=== PATIENT | male | born 1985 | race American Indian/Alaskan Native ===

== ENCOUNTER 2018-12-23 23:22 | Emergency (ER) | payer OTHER ==
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
[2018-12-24 00:07] LABS: Basophils # (Auto) 0.1 K/mm3 (0.0-0.1); Basophils % (Auto) 1.3 % (0.0-1.8); Eosinophils # (Auto) 0.3 K/mm3 (0.0-0.4); Eosinophils % (Auto) 4.1 % (0.0-4.3); Lymphocytes # (Auto) 2.5 K/mm3 (1.2-5.4); Lymphocytes % (Auto) 34.7 % (13.4-35.0); Mean Corpuscular HGB Conc 36 % (32-34); Mean Corpuscular Volume 84 fl (84-94); Monocytes # (Auto) 0.4 K/mm3 (0.0-0.8); Monocytes % (Auto) 5.5 % (0.0-7.3); Platelet Count 406 K/mm3 (140-440); Red Blood Count 4.64 M/mm3 (3.65-5.03); Red Cell Distribution Width 13.4 % (13.2-15.2)
[2018-12-24 00:38] LABS: Bilirubin,Urine NEG (Negative); Blood,Urine NEG (Negative); Color,Urine Straw (Yellow); Mucus,Urine FEW /HPF; Protein,Urine <15 mg/dL mg/dL (Negative); Urobilinogen,Urine < 2.0 mg/dL (<2.0); WBC,Urine < 1.0 /HPF (0.0-6.0)
[2018-12-24 00:52] LABS: Amphetamine Screen,Urine PRESUMPTIVE NEGATIVE; Benzodiazepines Screen,Urine PRESUMPTIVE NEGATIVE; Cannabinoid Screen,Urine PRESUMPTIVE NEGATIVE; Cocaine Screen,Urine PRESUMPTIVE NEGATIVE; Methadone Screen,Urine PRESUMPTIVE NEGATIVE; Opiate Screen,Urine PRESUMPTIVE NEGATIVE
[2018-12-24 01:11] LABS: Albumin 4.6 g/dL (3.9-5); Calcium 9.6 mg/dL (8.4-10.2)
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
[2018-12-24] MEDS ORDERED: VITAMIN B-1 100 MG, FOLVITE 1 MG, INFUVITE 10 ML, MAGNESIUM SULFATE 2 GM in NACL 0.9% 1... IV ONE (02:23)
[2018-12-24] MEDS ORDERED: FOLVITE 1 MG, INFUVITE 10 ML, MAGNESIUM SULFATE 2 GM in NACL 0.9% 1000 ML 1,000 ML IV ONE (02:45)
[2018-12-24] MEDS ORDERED: VITAMIN B-1 PO ONE (03:00)
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
[2018-12-24] MEDS: PAXIL PO SCH (11:16)
[2018-12-24] MEDS: BENADRYL PO SCH (22:15)
[2018-12-24] MEDS: MINIPRESS PO SCH (22:19)
[2018-12-25] MEDS: PAXIL PO SCH (09:46)
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
[2018-12-25] MEDS: BENADRYL PO SCH (22:05)
[2018-12-25] MEDS: MINIPRESS PO SCH (22:12)
[2018-12-26 08:04] VITALS: BP 128/80
[2018-12-26] MEDS: PAXIL PO SCH (10:00)
== END 2018-12-26 11:42 | disposition home or self-care (01) ==
LOC: EEVIPCON 23:22 → ED 23:22
DX: S00.212A Abrasion of left eyelid and periocular area, initial encounter (principal); S09.90XA Unspecified injury of head, initial encounter; F32.9 Major depressive disorder, single episode, unspecified; F43.10 Post-traumatic stress disorder, unspecified; F10.929 Alcohol use, unspecified with intoxication, unspecified; Z79.899 Other long term (current) drug therapy; Y04.8XXA Assault by other bodily force, initial encounter; Y93.89 Activity, other specified; Y92.89 Other specified places as the place of occurrence of the external cause; Y99.8 Other external cause status
CPT/HCPCS: 36415; 70450; 70486; 72125; 80053; 80307; 81001; 85025; 96365; 99285; G0480; J3475; J7030; 80320

== ENCOUNTER 2019-01-10 20:21 | Emergency (ER) | payer OTHER ==
[2019-01-10] MEDS ORDERED: GEODON IM ONE ×2 (20:48→21:00)
--- NOTE | 2019-01-10 21:06 | Emergency Department Report ---
ED Psych HPI - General Stated Complaint: MEDICAL CLEARANCE Time Seen by Provider: 01/10/19 20:45 Source: patient Mode of arrival: Ambulatory Limitations: Altered Mental Status - History of Present Illness Initial Comments: Patient is a 33-year-old male Emergency room for help with detox. Patient states he is drunk right now. Patient states his last drink was 30 minutes ago. Patient denies suicidal or homicidal ideation. Patient states he just wants help. Patient denies chest pain or shortness of breath. Patient denies hallucinations. -: Sudden History of same: Yes Quality: constant Improves With: none Worsens With: none Context: recent alcohol abuse Associated Symptoms: denies other symptoms. denies: confusion, headache, shortness of breath, nausea, vomiting, syncope, insomnia Treatments Prior to Arrival: none - Related Data Home Medications Medication Instructions Recorded Confirmed Last Taken Gabapentin [Neurontin] 3 tab PO HS 12/24/18 12/24/18 Unknown Lurasidone HCl [Latuda] 1 tab PO HS 12/24/18 12/24/18 Unknown Previous Rx's Medication Instructions Recorded Last Taken Type Prazosin [Minipress] 1 mg PO HS #30 capsule 12/26/18 Unknown Rx diphenhydrAMINE [Benadryl CAP] 25 mg PO HS #30 capsule 12/26/18 Unknown Rx Allergies Allergy/AdvReac Type Severity Reaction Status Date / Time No Known Allergies Allergy Verified 12/24/18 02:47 ED Review of Systems ROS: Stated complaint: MEDICAL CLEARANCE Other details as noted in HPI ED Past Medical Hx - Past Medical History Hx Psychiatric Treatment: Yes (PTSD) Additional medical history: Sleep disorder - Social History Substance Use Type: Alcohol - Medications Home Medications: Home Medications Medication Instructions Recorded Confirmed Last Taken Type Gabapentin [Neurontin] 3 tab PO HS 12/24/18 12/24/18 Unknown History Lurasidone HCl [Latuda] 1 tab PO HS 12/24/18 12/24/18 Unknown History Prazosin [Minipress] 1 mg PO HS #30 capsule 12/26/18 Unknown Rx diphenhydrAMINE [Benadryl CAP] 25 mg PO HS #30 capsule 12/26/18 Unknown Rx ED Physical Exam - General General appearance: alert, in no apparent distress - Head Head exam: Present: atraumatic, normocephalic - Eye Eye exam: Present: normal appearance, PERRL Pupils: Present: normal accommodation - ENT ENT exam: Present: mucous membranes moist - Neck Neck exam: Present: normal inspection - Respiratory Respiratory exam: Present: normal lung sounds bilaterally. Absent: respiratory distress, wheezes, rales, rhonchi - Cardiovascular Cardiovascular Exam: Present: regular rate, normal rhythm. Absent: systolic murmur, diastolic murmur, rubs, gallop - GI/Abdominal GI/Abdominal exam: Present: soft, normal bowel sounds. Absent: distended, tenderness, guarding - Rectal Rectal exam: Present: deferred - Extremities Exam Extremities exam: Present: normal inspection, full ROM - Back Exam Back exam: Present: normal inspection - Neurological Exam Neurological exam: Present: alert, oriented X3 - Psychiatric Psychiatric exam: Present: agitated - Expanded Psychiatric Exam Expanded Focused psych exam: Present: pressured speech, internal stimuli, psychomotor agitation, restlessness, flight of ideas, loose associations - Skin Skin exam: Present: warm, dry, intact, normal color. Absent: rash ED Course Vital Signs 01/10/19 01/10/19 01/10/19 21:05 21:10 22:00 Temperature 97.8 F 98 F Pulse Rate 90 88 80 Respiratory 16 14 15 Rate Blood Pressure 111/57 111/57 Blood Pressure 111/57 [Right] O2 Sat by Pulse 96 98 95 Oximetry - Reevaluation(s) Reevaluation #1: Evaluation done. Patient very agitated and aggressive towards staff. Patient is talking to the pacheco and the doors. Patient is aggressive to the pacheco and doors. Patient yelling obscenities in the ER. Multiple attempts have been made to calm the patient. Patient is agitated and aggressive towards staff. Patient was placed in a seclusion room with soft restraints and given Geodon.. 1013 signed for acute psychosis and aggressive behavior. 01/10/19 20:45 Patient resting in bed. Patient asleep but arousable. Patient's on the monitor and vital signs are stable. 01/10/19 22:00 Vital signs stable. Patient is still resting. Patient will be given a banana bag. 01/11/19 00:06 All labs reviewed. Patient will remain in the ER until exception to appropriate psychiatric facility. Patient will remain on a 1013. Patient is medically clear. 01/11/19 00:30 ED Medical Decision Making - Lab Data Result diagrams: 01/10/19 21:18 01/10/19 21:18 - Medical Decision Making Patient is a 33-year-old male that presents emergency room with complaints of wanting detox and help quitting drinking. Patient acutely intoxicated. Patient also having psychotic symptoms. Patient was placed on a 1013 for his acute psychosis and aggressive behavior. Patient was given Geodon upon initial evaluation and placed in 4. restraints. Patient resting well in the ER. Patient we will place in a seclusion room until patient behaviors have improved. Patient given a banana bag. Patient's labs unremarkable. Patient is medically clear. Patient remained as an ER hold on a 1013 until excepted into an appropriate psychiatric facility. - Differential Diagnosis psychosis. Acute alcohol intoxication. Delirium Critical care attestation.: If time is entered above; I have spent that time in minutes in the direct care of this critically ill patient, excluding procedure time. ED Disposition Clinical Impression: Acute psychosis, Aggressive behavior, Agitation Alcohol intoxication Qualifiers: Complication of substance-induced condition: with delirium Qualified Code(s): F10.921 - Alcohol use, unspecified with intoxication delirium Disposition: DC/TX-65 PSY HOSP/PSY UNIT Is pt being admited?: No Does the pt Need Aspirin: No Condition: Stable Additional Instructions: Patient medically cleared and will remain on 1013. Time of Disposition: 00:11
[2019-01-10 21:26] LABS: Bilirubin,Urine NEG (Negative); Blood,Urine SM (Negative); Color,Urine Straw (Yellow); Protein,Urine <15 mg/dL mg/dL (Negative); Urobilinogen,Urine < 2.0 mg/dL (<2.0); WBC,Urine < 1.0 /HPF (0.0-6.0)
[2019-01-10 21:28] LABS: Basophils % (Auto) 0.8 % (0.0-1.8); Eosinophils # (Auto) 0.1 K/mm3 (0.0-0.4); Eosinophils % (Auto) 2.3 % (0.0-4.3); Hematocrit 41.3 % (35.5-45.6); Lymphocytes # (Auto) 3.2 K/mm3 (1.2-5.4); Lymphocytes % (Auto) 53.9 % (13.4-35.0); Mean Corpuscular HGB Conc 34 % (32-34); Mean Corpuscular Volume 85 fl (84-94); Monocytes # (Auto) 0.4 K/mm3 (0.0-0.8); Monocytes % (Auto) 6.3 % (0.0-7.3); Platelet Count 313 K/mm3 (140-440); Red Blood Count 4.84 M/mm3 (3.65-5.03); Red Cell Distribution Width 13.2 % (13.2-15.2)
[2019-01-10 21:35] LABS: Amphetamine Screen,Urine PRESUMPTIVE NEGATIVE; Benzodiazepines Screen,Urine PRESUMPTIVE NEGATIVE; Cannabinoid Screen,Urine PRESUMPTIVE NEGATIVE; Cocaine Screen,Urine PRESUMPTIVE NEGATIVE; Methadone Screen,Urine PRESUMPTIVE NEGATIVE; Opiate Screen,Urine PRESUMPTIVE NEGATIVE
[2019-01-10 21:46] LABS: Alanine Aminotransferase 20 units/L (7-56); Albumin 4.7 g/dL (3.9-5); BUN/Creatinine Ratio 11; Blood Urea Nitrogen 13 mg/dL (9-20); Calcium 8.9 mg/dL (8.4-10.2); Hemolysis Index 20
[2019-01-11] MEDS ORDERED: FOLVITE 1 MG, INFUVITE 10 ML in NACL 0.9% 1000 ML 1,000 ML IV ONE (00:07)
[2019-01-11] MEDS ORDERED: VITAMIN B-1 PO ONE (01:15)
[2019-01-11] MEDS ORDERED: VITAMIN B-1 ONE (06:06)
--- NOTE | 2019-01-11 17:18 | Consultation ---
History of Present Illness - Reason for Consult Consult date: 01/11/19 Reason for consult: psychiatric evaluation - Chief Complaint Chief complaint: "I had a hard time sleeping." Mr. Mejia is a 33-year-old AA/M who presents to the emergency room for alcohol intoxication. His alcohol level was 0.35. He reports becoming agitated and reportedly aggressive. He was then put on 1013. He mentioned wanting detox as well but has not displayed withdrawal symptoms. For the past 1- 2 weeks he has been drinking 2-3 pints per day. He denies suicidal or homicidal ideation. He reports chronicn depression and anxiety. 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 He has been diagnosed with PTSD and bipolar depression. He has been to numerous [place] re[place] services and private rehabs. He reports being on various medications but has not maintained compliance. He states he ultimately goes back to drinking. He states it is self sabotage. He reports living at the [facility] which is supportive living. He has been there for 30 days. He was last at an inpatient psych facility in December 2018 at [facility]. Medications and Allergies Allergies Allergy/AdvReac Type Severity Reaction Status Date / Time No Known Allergies Allergy Verified 12/24/18 02:47 Home Medications Medication Instructions Recorded Confirmed Last Taken Type Lurasidone HCl [Latuda] 1 tab PO HS 12/24/18 01/11/19 Unknown History Prazosin [Minipress] 1 mg PO HS 01/11/19 01/11/19 Unknown History Past psychiatric history - Past Medical History Past Medical History: No medical history - past Psychiatric treatment and history Psych: Addictions, Bipolar, Depression psychiatric treatment history: no suicide attempts in and out of rehabs he has never been to a residential program lasting more than a few months. - Social History Social history: other (homeless. His parents give him $60/day ) Mental Status Exam - Vital signs Last Vital Signs Temp 97.9 F 01/11/19 14:13 Pulse 71 01/11/19 14:13 Resp 18 01/11/19 14:13 BP 100/50 01/11/19 14:13 Pulse Ox 98 01/11/19 14:13 - Exam Orientation: time, place, person Affect: depressed, anxious Mood: congruent with affect Thought content: other (thoughts of drinking) Thought Process: Intact Perceptions: none Speech: normal rate and pattern Concentration: focused Motor activity: normal Level of consciousness: alert Memory: Intact Sleep Symptoms: Difficulty Falling Asleep, Nightmares Appetite: decreased Interaction: cooperative Results Result Diagrams: 01/10/19 21:18 01/10/19 21:18 Abnormal lab results 01/10/19 01/10/19 01/10/19 Range/Units 21:18 21:18 21:18 Lymph % (Auto) 53.9 H (13.4-35.0) % Seg Neutrophils % 36.7 L (40.0-70.0) % Glucose (75-100) mg/dL AST (5-40) units/L Salicylates < 0.3 L (2.8-20.0) mg/dL Acetaminophen < 5.0 L (10.0-30.0) ug/mL Plasma/Serum Alcohol (0-0.07) % 01/10/19 01/10/19 Range/Units 21:18 21:18 Lymph % (Auto) (13.4-35.0) % Seg Neutrophils % (40.0-70.0) % Glucose 105 H (75-100) mg/dL AST 41 H (5-40) units/L Salicylates (2.8-20.0) mg/dL Acetaminophen (10.0-30.0) ug/mL Plasma/Serum Alcohol 0.37 H (0-0.07) % All other labs normal. Assessment and Plan Assessment and plan: Impression: alcohol use disorder, binging type, no withdrawal Agitated behavior while intoxicated, now resolved bipolar disorder, current episode depressed with psychotic features (paranoia) PTSD r/o cluster B personality disorder He wants to leave and return to the supportive living program he stays at, [facility]. He recently ran out of medication and drinking worsened. He was taking gabapentin hs, vistaril 100mg hs, and trazodone 100mg hs. He has a pattern of doing well and not drinking for months and when things go well, he will self sabotage and begin drinking. Recommendations: recommended restarting gabapentin 300mg hs and trazodone 100mg hs. He is encouraged to attend outpatient counseling and discuss use of long acting antipsychotic for bipolar, such as kai bootha. He states his mental health is the reason he drinks. He needs human services care specialist dual diagnosis treatment dispo: criteria for 1013 will be determined in 24 hours. Continue 1013 for now. Consider outpatient treatment since he has a supportive living arrangement. staffed with Dr. Collier
[2019-01-11] MEDS: NEURONTIN PO SCH (21:40)
[2019-01-11] MEDS: DESYREL PO SCH (21:41)
[2019-01-12] MEDS ORDERED: ATIVAN PO ONE (16:13)
--- NOTE | 2019-01-12 18:04 | Progress Note ---
Subjective - Reason for Consult Consult date: 01/12/19 Reason for consult: follow up - Chief Complaint Chief complaint: "[facility] Mr. Mejia is a 33-year-old AA/M who presents to the emergency room for alcohol intoxication. His alcohol level was 0.35. He reports becoming agitated and reportedly aggressive. He was then put on 1013. He is anxious today with pressured speech. He has generalized tremors but s eemingly unaware. He states he has always had pressured speech. He wants to stay in the ER until he can find a treatment program. He denies SI/HI. He reports living at the [facility] which is supportive living. He has been there for 30 days. He was last at an inpatient psych facility in December 2018 at [facility]. Mental Status Exam - Vital signs Last Vital Signs Temp 97.5 F L 01/12/19 12:00 Pulse 67 01/12/19 12:00 Resp 16 01/12/19 12:00 BP 127/79 01/12/19 12:00 Pulse Ox 98 01/12/19 12:00 - Exam Narrative exam: Orientation: time, place, person Affect: depressed, anxious Mood: congruent with affect Thought content: other (thoughts of drinking) Thought Process: Intact Perceptions: none Speech: pressured Concentration: focused Motor activity: generalized mild tremors Level of consciousness: alert Memory: Intact Sleep Symptoms: Difficulty Falling Asleep, Nightmares Appetite: decreased Interaction: cooperative Assessment and Plan Impression: alcohol use disorder, binging type, no withdrawal Agitated behavior while intoxicated, now resolved bipolar disorder, current episode depressed with psychotic features (paranoia) PTSD r/o cluster B personality disorder He [facility] to leave and [facility] He recently ran out of medication and drinking worsened. He was taking gabapentin hs, vistaril 100mg hs, and trazodone 100mg hs. He has a pattern of doing well and not drinking for months and when things go well, he will self sabotage and begin drinking. Recommendations: gabapentin 300mg hs and trazodone 100mg hs. abilify 5mg hs added for bipolar added. risks/benefits discussed ativan ordered po x 1 for tremors staff should monitor for withdrawal He is encouraged to attend outpatient counseling and discuss use of long acting antipsychotic for bipolar, such as abilify maintena. He states his mental health is the reason he drinks. He needs long term care pharmacist dual diagnosis treatment dispo: criteria for 1013 will be determined in 24 hours. Continue 1013 for now. Consider outpatient treatment since he has a supportive living arrangement. staffed with Dr. Collier
[2019-01-12] MEDS ORDERED: ABILIFY PO SCH (22:00)
[2019-01-13] MEDS: DESYREL PO SCH
[2019-01-13] MEDS: NEURONTIN PO SCH
--- NOTE | 2019-01-13 10:37 | Progress Note ---
Subjective - Reason for Consult Consult date: 01/13/19 Reason for consult: Psychiatry Follow-up - Chief Complaint Chief complaint: "Hello" 33-year-old AA/M who presents to the emergency room for alcohol intoxication. This patient s known to me. Today the patient is calm and cooperative during the assessment. He stated that he want to stop drinking (etoh) and stay compliant with his medications. He stated that he plan [facility] for outpatient psy services. He denies SI/HI;s and AVH's. He denies any side effects of his medications. He reports living at the [facility] which is supportive living. He has been there for 30 days. Mental Status Exam - Vital signs Last Vital Signs Temp 97.9 F 01/13/19 08:26 Pulse 64 01/13/19 08:26 Resp 16 01/13/19 08:26 BP 115/65 01/13/19 08:26 Pulse Ox 100 01/13/19 08:26 - Exam Narrative exam: MSE: Appearance: calm, cooperative Behavior: regular eye contact Speech: regular rate and tone Mood:: "okay" Affect: congruent to mood Thought Process: linear Thought Content: denies SI/HI's and AVH's Motor Activity: ambulatory Cognition: A/O x3 Insight: appropriate Judgment: appropriate Assessment and Plan Impression: Bipolar DO. PTSD. Alcohol Use DO. Today the patient is calm and cooperative during the assessment. The patient is no threat to others. DDx: Alcohol Induced Mood DO Recommendation/Plan: Rescind 1013. Continue Abilify 5 mg PO daily for mood, Gabpentin 300 mg PO HS, and Trazodone 100 mg PO HS. Discussed possible suicidality/medication induced jaylyn/priapism with the patient reference Trazodone. Dispo: The patient can follow up with the [facility] for [facility]. Will staff with Dr Wayne Collier.
--- NOTE | 2019-01-13 13:49 | Emergency Department Report ---
Blank Doc - Documentation Documentation: 1013 was signed by psychiatry and the patient to follow up at the [facility].
[2019-01-13 14:29] VITALS: BP 132/78
== END 2019-01-13 14:01 ==
LOC: EEVIPCON 20:21 → ED 20:21
DX: F10.120 Alcohol abuse with intoxication, uncomplicated (principal); F23 Brief psychotic disorder; F43.10 Post-traumatic stress disorder, unspecified; F31.9 Bipolar disorder, unspecified
CPT/HCPCS: 36415; 80053; 80307; 81001; 85025; G0480; J3486; J7030; 80320; 96365; 96366; 96372

== ENCOUNTER 2019-01-20 16:54 | Emergency (ER) | payer OTHER ==
--- NOTE | 2019-01-20 17:08 | Emergency Department Report ---
Chief Complaint: Alcohol Stated Complaint: DETOX Time Seen by Provider: 01/20/19 17:06 - HPI History of Present Illness: Pt presents for ETOH detox pt states he last had ETOH at 3 PM states he drinks 1 pint of beer a day no SI/HI no hallucinations has been to a detox facility previously hx of Bipolar depression takes lithium, hydroxyzine, latuda no allergies to medications (+) smoker no drug use MSE screening note: Focused history and physical exam performed. Due to findings the following was ordered: detox protocol ED Disposition for MSE Condition: Stable
--- NOTE | 2019-01-20 17:20 | Emergency Department Report ---
Blank Doc - Documentation Documentation: pt states that he lost his wallet in the parking lot, pt signed AMA form to [facility]. pt has now returned to the hospital and is being sent to the main ED for alcohol detox.
[2019-01-20 17:53] LABS: Amphetamine Screen,Urine PRESUMPTIVE NEGATIVE; Benzodiazepines Screen,Urine PRESUMPTIVE NEGATIVE; Cannabinoid Screen,Urine PRESUMPTIVE NEGATIVE; Cocaine Screen,Urine PRESUMPTIVE NEGATIVE; Methadone Screen,Urine PRESUMPTIVE NEGATIVE; Opiate Screen,Urine PRESUMPTIVE NEGATIVE
[2019-01-20 17:58] LABS: Basophils # (Auto) 0.1 K/mm3 (0.0-0.1); Basophils % (Auto) 1.1 % (0.0-1.8); Eosinophils # (Auto) 0.1 K/mm3 (0.0-0.4); Hematocrit 44.2 % (35.5-45.6); Hemoglobin 14.6 gm/dl (11.8-15.2); Lymphocytes # (Auto) 2.5 K/mm3 (1.2-5.4); Lymphocytes % (Auto) 42.2 % (13.4-35.0); Mean Corpuscular HGB Conc 33 % (32-34); Mean Corpuscular Volume 87 fl (84-94); Monocytes # (Auto) 0.5 K/mm3 (0.0-0.8); Monocytes % (Auto) 8.7 % (0.0-7.3); Platelet Count 318 K/mm3 (140-440); Red Blood Count 5.05 M/mm3 (3.65-5.03); Red Cell Distribution Width 13.4 % (13.2-15.2)
--- NOTE | 2019-01-20 18:26 | Emergency Department Report ---
ED Alcohol HPI - General Chief Complaint: Alcohol Stated Complaint: DETOX Time Seen by Provider: 01/20/19 17:06 Source: patient Mode of arrival: Ambulatory Limitations: No Limitations - History of Present Illness Initial Comments: Patient is 33 years old male with history of bipolar and alcohol dependence. Patient presented to the emergency room stating that he wants detox from alcohol. Patient stated that he had multiple attempts of detox last one was one week ago. Patient stated that he drank 2 pints this morning. Patient stated that he drink every day. Patient denied any hallucination, homicidal or suicidal ideation. MD Complaint: alcohol intoxication, alcohol dependence, desires rehab Chronic Alcohol Use: Yes Previous Visits for Alcohol Intoxication?: Yes Recent Trauma: No Associated Symptoms: denies other symptoms - Related Data Home Medications Medication Instructions Recorded Confirmed Last Taken Lurasidone HCl [Latuda] 1 tab PO HS 12/24/18 01/11/19 Unknown Prazosin [Minipress] 1 mg PO HS 01/11/19 01/11/19 Unknown Allergies Allergy/AdvReac Type Severity Reaction Status Date / Time No Known Allergies Allergy Verified 12/24/18 02:47 ED Review of Systems ROS: Stated complaint: DETOX Other details as noted in HPI Comment: All other systems reviewed and negative Constitutional: denies: chills, fever Respiratory: denies: cough, orthopnea, shortness of breath, SOB with exertion, SOB at rest Cardiovascular: denies: chest pain, palpitations Gastrointestinal: denies: abdominal pain, nausea, vomiting, diarrhea, constipation, hematemesis, hematochezia Musculoskeletal: denies: back pain Neurological: denies: headache, weakness ED Past Medical Hx - Past Medical History Hx Psychiatric Treatment: Yes (PTSD,bipolar,depression, attempted suicide 2012) Additional medical history: Sleep disorder - Surgical History Past Surgical History?: No - Social History Smoking Status: Never Smoker Substance Use Type: Alcohol - Medications Home Medications: Home Medications Medication Instructions Recorded Confirmed Last Taken Type Lurasidone HCl [Latuda] 1 tab PO HS 12/24/18 01/11/19 Unknown History Prazosin [Minipress] 1 mg PO HS 01/11/19 01/11/19 Unknown History ED Physical Exam - General Limitations: No Limitations General appearance: alert, in no apparent distress - Head Head exam: Present: atraumatic, normocephalic, normal inspection - Eye Eye exam: Present: normal appearance, PERRL - ENT ENT exam: Present: normal exam, normal orophraynx, mucous membranes moist - Neck Neck exam: Present: normal inspection, full ROM. Absent: tenderness, meningismus, lymphadenopathy, thyromegaly - Respiratory Respiratory exam: Present: normal lung sounds bilaterally - Cardiovascular Cardiovascular Exam: Present: regular rate, normal rhythm, normal heart sounds - GI/Abdominal GI/Abdominal exam: Present: soft, normal bowel sounds. Absent: distended, tenderness, guarding, rebound, rigid, organomegaly, mass, bruit, pulsatile mass, hernia - Extremities Exam Extremities exam: Present: normal inspection, full ROM, normal capillary refill - Back Exam Back exam: Present: normal inspection, full ROM. Absent: tenderness, CVA ten derness (R), CVA tenderness (L), muscle spasm, paraspinal tenderness, vertebral tenderness - Neurological Exam Neurological exam: Present: alert, oriented X3, CN II-XII intact, normal gait, reflexes normal - Psychiatric Psychiatric exam: Absent: depressed, agitated, anxious, flat affect, manic, homicidal ideation, suicidal ideation - Skin Skin exam: Present: warm, intact ED Course Vital Signs 01/20/19 01/20/19 01/20/19 17:08 18:18 18:24 Temperature 98.4 F Pulse Rate 79 Respiratory 18 18 Rate Blood Pressure 144/84 Blood Pressure [Left] O2 Sat by Pulse 98 98 97 Oximetry 01/20/19 01/20/19 01/20/19 18:43 19:00 19:56 Temperature 98 F Pulse Rate 62 66 87 Respiratory 14 16 11 L Rate Blood Pressure 125/87 Blood Pressure 127/74 124/80 [Left] O2 Sat by Pulse 98 100 99 Oximetry 01/20/19 01/20/19 01/20/19 20:00 22:00 22:58 Temperature Pulse Rate 77 87 68 Respiratory 12 16 17 Rate Blood Pressure 124/75 116/64 116/64 Blood Pressure [Left] O2 Sat by Pulse 95 95 97 Oximetry 01/20/19 01/21/19 01/21/19 23:00 00:00 01:00 Temperature Pulse Rate 66 60 69 Respiratory 16 16 16 Rate Blood Pressure 106/57 94/52 94/52 Blood Pressure [Left] O2 Sat by Pulse 97 97 96 Oximetry ED Medical Decision Making - Lab Data Result diagrams: 01/20/19 17:44 04/15/19 17:44 - Medical Decision Making Patient is 33 years old male with history of bipolar and alcohol dependence. Patient presented to the emergency room stating that he wants detox from alcohol. Patient stated that he had multiple attempts of detox last one was one week ago. Patient stated that he drank 2 pints this morning. Patient stated that he drink every day. Patient denied any hallucination, homicidal or suicidal ideation. Patient has been evaluated by our mental health team and recommended outpatient [facility] with [facility]. Patient will be discharged home when he is sober. Critical care attestation.: If time is entered above; I have spent that time in minutes in the direct care of this critically ill patient, excluding procedure time. ED Disposition Clinical Impression: Alcohol intoxication, Alcohol abuse Disposition: DC-01 TO HOME OR SELFCARE Is pt being admited?: No Condition: Stable Instructions: Abuse of Alcohol (ED), Alcohol Intoxication (ED) Referrals: DUARTE DE JESUS MD [Primary Care Provider] - 3-5 Days Forms: AMA Form
[2019-01-20 18:29] LABS: Alanine Aminotransferase 28 units/L (7-56); Albumin 4.9 g/dL (3.9-5); BUN/Creatinine Ratio 8; Blood Urea Nitrogen 9 mg/dL (9-20); Calcium 9.6 mg/dL (8.4-10.2); Hemolysis Index 12
[2019-01-20] MEDS ORDERED: NACL 0.9% 1000 ML 1,000 ML ONE (18:29)
[2019-01-20] MEDS ORDERED: NACL 0.9% 1000 ML 1,000 ML IV ONE (18:32)
[2019-01-21 19:23] VITALS: BP 112/57
== END 2019-01-21 01:35 | disposition home or self-care (01) ==
LOC: ED 16:54
DX: F10.120 Alcohol abuse with intoxication, uncomplicated (principal); F31.9 Bipolar disorder, unspecified; F43.10 Post-traumatic stress disorder, unspecified; G47.30 Sleep apnea, unspecified
CPT/HCPCS: 36415; 80053; 80307; 83735; 84100; 85025; 99284; G0480; J7030; 80320

== ENCOUNTER 2019-01-30 10:19 | Emergency (ER) | payer OTHER ==
[2019-01-30] MEDS ORDERED: PROVENTIL IH ONE (11:03)
[2019-01-30 11:15] LABS: Basophils % (Auto) 0.9 % (0.0-1.8); Eosinophils % (Auto) 0.3 % (0.0-4.3); Hematocrit 42.6 % (35.5-45.6); Hemoglobin 14.3 gm/dl (11.8-15.2); Lymphocytes # (Auto) 1.7 K/mm3 (1.2-5.4); Lymphocytes % (Auto) 31.4 % (13.4-35.0); Mean Corpuscular HGB Conc 34 % (32-34); Mean Corpuscular Volume 86 fl (84-94); Monocytes # (Auto) 0.3 K/mm3 (0.0-0.8); Monocytes % (Auto) 4.6 % (0.0-7.3); Platelet Count 336 K/mm3 (140-440); Red Blood Count 4.95 M/mm3 (3.65-5.03); Red Cell Distribution Width 13.9 % (13.2-15.2)
[2019-01-30 11:33] LABS: BUN/Creatinine Ratio 13; Blood Urea Nitrogen 15 mg/dL (9-20); Calcium 9.2 mg/dL (8.4-10.2); Hemolysis Index 7
[2019-01-30] MEDS ORDERED: VITAMIN B-1 100 MG, FOLVITE 1 MG, INFUVITE 10 ML in NACL 0.9% 1000 ML 1,000 ML IV ONE (12:00)
--- NOTE | 2019-01-30 12:08 | Emergency Department Report ---
HPI - General Chief Complaint: Alcohol Time Seen by Provider: 01/30/19 11:46 - HPI HPI: Room 8 The patient is a 33-year-old male presenting with a chief complaint of alcoholism. The patient states normally consumes approximately 2 pints of alcohol daily. Patient states his last consumption occurred approximately 2 hours prior to arrival. The patient states when drinking he became more tired than normal and realized that he needed help detoxing from alcohol. The patient states he had a few episodes of nausea and vomiting Location: Mental state Duration: [See above] Quality: [See above] Severity: Moderate Modifying factors: [see above] Context: [see above] Mode of transportation: [not driving] ED Past Medical Hx - Past Medical History Previous Medical History?: Yes Hx Psychiatric Treatment: Yes (PTSD) Additional medical history: Sleep disorder - Surgical History Past Surgical History?: No - Family History Family history: no significant - Social History Smoking Status: Current Every Day Smoker (3-4 cigarettes daily) Substance Use Type: Alcohol (2 pints daily) - Medications Home Medications: Home Medications Medication Instructions Recorded Confirmed Last Taken Type Lurasidone HCl [Latuda] 1 tab PO HS 12/24/18 01/11/19 Unknown History Prazosin [Minipress] 1 mg PO HS 01/11/19 01/11/19 Unknown History chlordiazePOXIDE [Librium] 25 mg PO BID #45 capsule 01/30/19 Unknown Rx ED Review of Systems ROS: Stated complaint: DETOX Other details as noted in HPI Constitutional: no symptoms reported Eyes: denies: eye pain ENT: denies: throat pain Respiratory: no symptoms reported Cardiovascular: denies: chest pain Endocrine: no symptoms reported Gastrointestinal: nausea, vomiting Genitourinary: denies: urgency Musculoskeletal: denies: back pain Neurological: denies: headache Physical Exam - Physical Exam Vital Signs: Vital Signs 01/30/19 01/30/19 10:45 11:54 Temperature 97.9 F Pulse Rate 98 H 95 H Respiratory 20 18 Rate Blood Pressure 126/78 Blood Pressure 115/63 [Left] O2 Sat by Pulse 98 100 Oximetry Physical Exam: GENERAL: The patient is well-developed well-nourished male lying on stretcher not appearing to be in acute distress. [] HEENT: Normocephalic. Atraumatic. Extraocular motions are intact. Patient has moist mucous membranes. NECK: Supple. Trachea midline CHEST/LUNGS: Clear to auscultation. There is no respiratory distress noted. HEART/CARDIOVASCULAR: Regular. There is no tachycardia. There is no gallop rub or murmur. ABDOMEN: Abdomen is soft, nontender. Patient has normal bowel sounds. There is no abdominal distention. SKIN: There is no rash. There is no edema. There is no diaphoresis. NEURO: The patient is awake, alert, and oriented. The patient is cooperative. The patient has no focal neurologic deficits. The patient has normal speech. Cranial nerves II through XII grossly intact, no drift MUSCULOSKELETAL: There is no evidence of acute injury. ED Course Vital Signs 01/30/19 01/30/19 10:45 11:54 Temperature 97.9 F Pulse Rate 98 H 95 H Respiratory 20 18 Rate Blood Pressure 126/78 Blood Pressure 115/63 [Left] O2 Sat by Pulse 98 100 Oximetry ED Medical Decision Making - Lab Data Result diagrams: 01/30/19 11:02 01/30/19 11:02 Laboratory Tests 01/30/19 01/30/19 01/30/19 11:02 11:02 11:02 WBC RBC Hgb Hct MCV MCH MCHC RDW Plt Count Lymph % (Auto) [place] % (Auto) Eos % (Auto) Baso % (Auto) Lymph # [place] # Eos # Baso # Seg Neutrophils % Seg Neutrophils # Sodium 143 Potassium 4.0 Chloride 102.5 Carbon Dioxide 23 Anion Gap 22 BUN 15 Creatinine 1.2 Estimated GFR > 60 BUN/Creatinine Ratio 13 Glucose 102 H Calcium 9.2 Total Bilirubin Direct Bilirubin Indirect Bilirubin AST ALT Alkaline Phosphatase Total Protein Albumin Albumin/Globulin Ratio Urine Color Urine Turbidity Urine pH Ur Specific [place] Urine Protein Urine Glucose (UA) Urine Ketones Urine Blood Urine Nitrite Urine Bilirubin Urine Urobilinogen Ur Leukocyte Esterase Urine WBC (Auto) Urine RBC (Auto) Calcium Oxalate Crystal Amorphous Crystals Urine Mucus Salicylates < 0.3 L Urine Opiates Screen Urine Methadone Screen Acetaminophen < 5.0 L Ur Barbiturates Screen Ur Phencyclidine Scrn Ur Amphetamines Screen U Benzodiazepines Scrn Urine Cocaine Screen U Marijuana (THC) Screen Drugs of Abuse Note Plasma/Serum Alcohol 01/30/19 01/30/19 01/30/19 11:02 11:02 11:02 WBC 5.6 RBC 4.95 Hgb 14.3 Hct 42.6 MCV 86 MCH 29 MCHC 34 RDW 13.9 Plt Count 336 Lymph % (Auto) 31.4 [place] % (Auto) 4.6 Eos % (Auto) 0.3 Baso % (Auto) 0.9 Lymph # 1.7 [place] # 0.3 Eos # 0.0 Baso # 0.0 Seg Neutrophils % 62.8 Seg Neutrophils # 3.5 Sodium Potassium Chloride Carbon Dioxide Anion Gap BUN Creatinine Estimated GFR BUN/Creatinine Ratio Glucose Calcium Total Bilirubin 0.30 Direct Bilirubin < 0.2 Indirect Bilirubin 0.1 AST 28 ALT 19 Alkaline Phosphatase 63 Total Protein 7.6 Albumin 4.5 Albumin/Globulin Ratio 1.5 Urine Color Urine Turbidity Urine pH Ur Specific [place] Urine Protein Urine Glucose (UA) Urine Ketones Urine Blood Urine Nitrite Urine Bilirubin Urine Urobilinogen Ur Leukocyte Esterase Urine WBC (Auto) Urine RBC (Auto) Calcium Oxalate Crystal Amorphous Crystals Urine Mucus Salicylates Urine Opiates Screen Urine Methadone Screen Acetaminophen Ur Barbiturates Screen Ur Phencyclidine Scrn Ur Amphetamines Screen U Benzodiazepines Scrn Urine Cocaine Screen U Marijuana (THC) Screen Drugs of Abuse Note Plasma/Serum Alcohol 0.33 H 01/30/19 01/30/19 12:54 12:54 WBC RBC Hgb Hct MCV MCH MCHC RDW Plt Count Lymph % (Auto) [place] % (Auto) Eos % (Auto) Baso % (Auto) Lymph # [place] # Eos # Baso # Seg Neutrophils % Seg Neutrophils # Sodium Potassium Chloride Carbon Dioxide Anion Gap BUN Creatinine Estimated GFR BUN/Creatinine Ratio Glucose Calcium Total Bilirubin Direct Bilirubin Indirect Bilirubin AST ALT Alkaline Phosphatase Total Protein Albumin Albumin/Globulin Ratio Urine Color [place] Urine Turbidity Hazy Urine pH 5.0 Ur Specific [place] 1.041 H Urine Protein 30 mg/dl Urine Glucose (UA) Neg Urine Ketones Neg Urine Blood Neg Urine Nitrite Neg Urine Bilirubin Neg Urine Urobilinogen 2.0 Ur Leukocyte Esterase Neg Urine WBC (Auto) 3.0 Urine RBC (Auto) 3.0 Calcium Oxalate Crystal 2+ Amorphous Crystals Few Urine Mucus 2+ Salicylates Urine Opiates Screen Presumptive negative Urine Methadone Screen Presumptive negative Acetaminophen Ur Barbiturates Screen Presumptive negative Ur Phencyclidine Scrn Presumptive negative Ur Amphetamines Screen Presumptive negative U Benzodiazepines Scrn Presumptive negative Urine Cocaine Screen Presumptive negative U Marijuana (THC) Screen Presumptive negative Drugs of Abuse Note Disclamer Plasma/Serum Alcohol - Differential Diagnosis alcoholism Critical care attestation.: If time is entered above; I have spent that time in minutes in the direct care of this critically ill patient, excluding procedure time. ED Disposition Clinical Impression: Alcohol abuse Disposition: DC-01 TO HOME OR SELFCARE Is pt being admited?: No Does the pt Need Aspirin: No Condition: Stable Instructions: Alcohol Intoxication (ED), Alcohol Withdrawal (ED) Additional Instructions: Return to the emergency department immediately should you develop worsening symptoms, fever, inability to tolerate food or liquid or any other concerns. Prescriptions: chlordiazePOXIDE [Librium] 25 mg PO BID #45 capsule Referrals: [facility] [Outside] - 3-5 Days [facility] [Outside] - [facility] Time of Disposition: 18:45
[2019-01-30] MEDS ORDERED: ZOFRAN IV ONE (12:09)
[2019-01-30] MEDS ORDERED: VITAMIN B-1 100 MG, FOLVITE 1 MG, INFUVITE 10 ML, MAGNESIUM SULFATE 2 GM in NACL 0.9% 1... IV ONE (13:00)
[2019-01-30 13:27] LABS: Alanine Aminotransferase 19 units/L (7-56); Albumin 4.5 g/dL (3.9-5)
[2019-01-30 13:27] LABS: Amorphous Crystals,Urine Few; Bilirubin,Urine NEG (Negative); Blood,Urine NEG (Negative); Calcium Oxalate Crystals,Urine 2+; Color,Urine Amber (Yellow); Mucus,Urine 2+ /HPF
[2019-01-30 13:30] LABS: Bilirubin,Direct < 0.2 mg/dL (0-0.2)
[2019-01-30 13:50] LABS: Amphetamine Screen,Urine PRESUMPTIVE NEGATIVE; Benzodiazepines Screen,Urine PRESUMPTIVE NEGATIVE; Cannabinoid Screen,Urine PRESUMPTIVE NEGATIVE; Cocaine Screen,Urine PRESUMPTIVE NEGATIVE; Methadone Screen,Urine PRESUMPTIVE NEGATIVE; Opiate Screen,Urine PRESUMPTIVE NEGATIVE
[2019-01-30] MEDS ORDERED: NACL 0.9% 1000 ML 1,000 ML IV ONE (14:00)
[2019-01-30 18:10] VITALS: BP 107/65
[2019-01-30] MEDS ORDERED: ATIVAN PO ONE (18:54)
== END 2019-01-30 19:30 | disposition home or self-care (01) ==
LOC: ED 10:19
DX: F10.10 Alcohol abuse, uncomplicated (principal); R11.2 Nausea with vomiting, unspecified; F17.200 Nicotine dependence, unspecified, uncomplicated; G47.9 Sleep disorder, unspecified
CPT/HCPCS: 36415; 80048; 80076; 80307; 81001; 85025; 96365; 96366; 96375; 99284; G0480; J2405; J3411; J7030; 80320